=== PATIENT | male | born 1950 | race Caucasian/White ===

== ENCOUNTER 2018-06-29 11:12 | Inpatient (IN) ==
--- NOTE | 2018-06-29 11:20 | Emergency Department Note ---
ED Disposition Clinical Impression: Tobacco use disorder, COPD (chronic obstructive pulmonary disease), Community acquired bacterial pneumonia, Thickening of pleura Disposition: Still a Patient Condition on Discharge: Fair - Critical Care Critical Care Time: No Attestation: On , the high probability of a clinically significant, sudden or life threatening deterioration of the following system(s) required my full and direct attention, intervention and personal management. The time I documented below is in addition to time spent performing reported procedures but includes the following listed in this critical care notation. Medical Decision Making - Kel Inquiry Pt receiving controlled substance: No Kel was queried for this patient: No Vital Signs: 06/29/18 11:13 06/29/18 11:40 06/29/18 12:21 Temperature 103 F H Temperature Source Oral Pulse Rate 109 H Pulse Rate [Right Brachial] 115 H 105 H Respiratory Rate 24 Blood Pressure [Right Arm] 121/45 119/58 Blood Pressure Mean [Right Arm] 70 78 Blood Pressure Source [Right Arm] Automatic Cuff Automatic Cuff Blood Pressure Position [Right Arm] Sitting Sitting 02 Sat by Pulse Oximetry 91 L 94 L 96 Oxygen Delivery Method Nasal Cannula Nasal Cannula Nasal Cannula Oxygen Flow Rate (LPM) 2 2 2 06/29/18 13:00 Temperature Temperature Source Pulse Rate Pulse Rate [Right Brachial] 109 H Respiratory Rate Blood Pressure [Right Arm] 121/62 Blood Pressure Mean [Right Arm] 81 Blood Pressure Source [Right Arm] Blood Pressure Position [Right Arm] 02 Sat by Pulse Oximetry 95 Oxygen Delivery Method Oxygen Flow Rate (LPM) - Lab Data Lab Results 06/29/18 11:24: WBC 18.1 H, RBC 4.80, Hgb 14.2, Hct 44.0, MCV 91.8, MCH 29.6, MCHC 32.3, RDW 15.2, Plt Count 294, MPV 10.3, Neut % (Auto) 84.6 H, Lymph % (Auto) 6.5 L, [place] % (Auto) 8.1, Eos % (Auto) 0.4, Baso % (Auto) 0.4, Neut # (Auto) 15.3 H, Lymph # (Auto) 1.2, [place] # (Auto) 1.5 H, Eos # (Auto) 0.1, Baso # (Auto) 0.1, Total Counted 100, Neutrophils % (Manual) 82 H, Lymphocytes % (Manual) 13, Monocytes % (Manual) 5, Platelet Estimate Normal, RBC Morphology Normal 06/29/18 11:24: Sodium 142, Potassium 4.0, Chloride 103, Carbon Dioxide 28, Anion Gap 15.0, BUN 17, Creatinine 0.92, Estimated Creat Clear 102, Estimated GFR 82, Est GFR ( Amer) 99, Glucose 137 H, Calcium 9.6, Total Bilirubin 0.6, AST 14 L, ALT 30, Alkaline Phosphatase 84, Total Creatine Kinase 80, CK-MB (CK-2) 0.6, CK-MB (CK-2) Rel Index 0.8, Troponin I < 0.02, Total Protein 8.3 H, Albumin 3.4, Globulin 4.9 H, Albumin/Globulin Ratio 0.7 L 06/29/18 11:24: Lactate 1.3 Result diagrams: 06/29/18 11:24 06/29/18 11:24 Orders (Tests/Meds): ED MEDICATIONS Generic Name Dose Route Start Last Admin Trade Name Freq PRN Reason Stop Dose Admin Albuterol/Ipratropium 3 ml 06/29/18 11:30 06/29/18 11:39 Duoneb 3ml Critical [facility] hospital 07/29/18 11:29 3 ml Q1H ABDULLAHI Administration Ceftriaxone Sodium 1 gm/ 50 mls @ 100 mls/hr 06/29/18 11:30 06/29/18 11:37 Sodium Chloride IV 07/13/18 11:29 100 mls/hr Q24H ABDULLAHI Administration Protocol Sodium Chloride 3,060 mls @ 1,530 mls/hr 06/29/18 11:37 06/29/18 11:39 Sod Chlor 0.9% 1000ml Bag 30 ml/kg infuse over 2 hr (3060 ml) 06/29/18 13:36 1,530 mls/hr IV Administration .Q2H ONE Sodium Chloride 3 ml 06/29/18 11:22 06/29/18 11:38 Sodium Chloride 3% 15ml Critical access hospital 07/29/18 11:21 3 ml ONCE PRN Administration INDUCE [employer]UM [employer]LE[employer] Discontinued Medications Generic Name Dose Route Start Last Admin Trade Name Freq PRN Reason Stop Dose Admin Acetaminophen 650 mg 06/29/18 11:50 06/29/18 11:53 Acetaminophen 325mg Tab PO 06/29/18 11:51 650 mg ONCE ONE Administration Sodium Chloride 1,000 mls @ 500 mls/hr 06/29/18 11:30 06/29/18 11:38 Sod Chlor 0.9% 1000ml Bag IV 06/29/18 13:29 Not Given .Q2H ABDULLAHI ORDERS Category Date Time Status XR chest 2V Stat Exams 06/29/18 11:22 Taken Urinalysis and Microscopic Stat Lab 06/29/18 11:22 Ordered Blood Culture Stat Micro 06/29/18 11:28 Ordered Sputum Culture & Gram Stain Stat Micro 06/29/18 11:46 Ordered ECG Request by /Nse Stat Y 06/29/18 11:22 Ordered - ECG Data Tracing #1 Sinus tachycardia 10 4/min no acute finding. ECG initial impression date: 06/29/18 ECG initial impression time: 12:05 Medical Decision Narrative: Patient received neb treatments obtain sputum and blood cultures start on antibiotics. Did have abnormal chest x-ray with right middle lobe infiltrates and pleural disease. I discussed the chest x-ray with Dr. Hernandez. [address] alexandra was personal lines underwriter for unassigned patient admitted for community- acquired pneumonia and chronic lung. Resp/SOB HPI - General Stated Complaint: SOA Time Seen by Provider: 06/29/18 11:15 - History of Present Illness 68 years old smoker white male with history of heart condition that he takes no longer medication for it. Also he had a his of left Kidney surgery for a benign tumor. He has been unable to smoke for the last few days due to shortness of breath having productive sputum that turned green, denies fever or chills. He has a remote history of pneumonia. The contacted ambulance upon arrival he was short of breath with a saturation of 92 was given a DuoNeb with a saturation of 100% The patient denies fever chills chest pain palpitations hemoptysis hematemesis coffee-ground emesis melanotic stool or bleeding per rectum he denies history of dysuria hematuria or frequency. MD Complaint: shortness of breath, cough Onset (ago): day(s) (4 days.) Context: occurred during exertion, smoke/fume exposure Severity: moderate Consistency/Duration: constant Relieving factors: oxygen, bronchodilators Exacerbating factors: exertion Known history of: COPD Associated symptoms: denies other symptoms Treatment prior to arrival: oxygen, bronchodilator - Related Data Home oxygen amount: 2 liters Home Medications Medication Instructions Recorded Confirmed Aspirin [Aspir 81] 81 mg PO DAILY 06/29/18 06/29/18 Buspirone HCl [Buspar 10mg tablet] 0 mg PO BID PRN 06/29/18 06/29/18 Clopidogrel Bisulfate [Plavix 75mg 75 mg PO DAILY 06/29/18 06/29/18 Tab] Gabapentin [Neurontin 800mg Tab] 800 mg PO TID PRN 06/29/18 06/29/18 Lisinopril/Hydrochlorothiazide 1 tab PO DAILY 06/29/18 06/29/18 [Lisinopril-Hctz 20-12.5 mg Tab] Metoprolol Succinate 50 mg PO DAILY 06/29/18 06/29/18 Oxycodone HCl [Oxycontin 15mg tab] 15 mg PO Q6HP PRN 06/29/18 06/29/18 Pantoprazole Sodium [Protonix 40mg 40 mg PO DAILY 06/29/18 06/29/18 tablet] Allergies Allergy/AdvReac Type Severity Reaction Status Date / Time No Known Allergies Allergy Verified 06/29/18 11:29 [facility] History I have reviewed the patient's past medical history: Yes ROS Obtained: Yes All systems reviewed & no additional complaints Physical Exam - General General appearance: alert, in no apparent distress, anxious - Head Head exam: atraumatic, normocephalic, normal inspection - Eye Eye exam: Present: normal appearance, PERRL, EOMI. Absent: scleral icterus, conjunctival redness, jaundice, nystagmus - ENT ENT exam: Present: normal exam, normal oropharynx, mucous membranes dry, TM's normal bilaterally, normal external ear exam - Neck Neck exam: Present: normal inspection, full ROM, trachea midline. Absent: tenderness, meningismus, lymphadenopathy - Chest Chest inspection: Present: normal inspection, symmetric chest wall rise. Absent: tenderness - Respiratory Respiratory exam: Present: normal lung sounds bilaterally, respiratory distress, wheezes, accessory muscle use (He is in moderate respiratory distress with coarse rhonchi over the right lung. ) - Cardiovascular Cardiovascular exam: Present: regular rate, normal rhythm, normal heart sounds. Absent: JVD - Abdominal Exam Abdominal exam: Present: soft, normal bowel sounds. Absent: distention, tenderness, guarding, rebound, rigidity - Extremities Exam Extremities exam: Present: normal inspection, full ROM, normal capillary refill. Absent: tenderness, pedal edema, calf tenderness - Back Exam Back exam: Present: normal inspection. Absent: tenderness - Neurological Exam Neurological exam: Present: alert, oriented X3, CN II-XII intact, motor sensory deficit, reflexes normal - Psychiatric Psychiatric exam: Present: normal affect, normal mood - Skin Skin exam: Present: warm, dry, intact, normal color - Lymphatic Lymphatic Findings: no adenopathy
[2018-06-29 11:45] LABS: Basophils # 0.1 K/mm3 (0-0.2); Basophils % 0.4 % (0.1-2.0); Eosinophils # 0.1 K/mm3 (0.0-0.4); Eosinophils % 0.4 % (0.1-12.0); Hemoglobin 14.2 g/dL (14.1-18.0); Lymphocytes # 1.2 K/mm3 (0.7-4.5); Lymphocytes % 6.5 K/mm3 (10-50); Mean Corpuscular HGB Conc 32.3 g/dL (31.8-35.4); Mean Corpuscular Hemoglobin 29.6 pg (27.0-31.2); Mean Corpuscular Volume 91.8 fl (80-94); Mean Platelet Volume 10.3 fl (7.4-10.4); Monocytes # 1.5 K/mm3 (0.1-1.0); Monocytes % 8.1 % (1.7-9.3); Neutrophils # 15.3 K/mm3 (1.8-7.8); Neutrophils % 84.6 % (37.0-80.0); Platelet Count 294 K/mm3 (142-424); Red Cell Distribution Width 15.2 % (11.5-17.5); White Blood Count 18.1 K/mm3 (4.8-10.8)
[2018-06-29 12:05] LABS: Alanine Aminotransferase 30 U/L (12-78); Albumin Level 3.4 gm/dL (3.4-5.0); Albumin/Globulin Ratio 0.7 (1.1-1.8); Alkaline Phosphatase 84 U/L (46-116); Aspartate Amino Transferase 14 U/L (15-37); Bilirubin,Total 0.6 mg/dL (0.2-1.0); Blood Urea Nitrogen 17 mg/dL (7-18); Calcium 9.6 mg/dL (8.5-10.1); Carbon Dioxide 28 mmol/L (21.0-32.0); Chloride 103 mmol/L (98-107); Creatine Kinase 80 U/L (39-308); Globulin 4.9 gm/dl (1.3-3.2); Glucose 137 mg/dL (74-106); Sodium 142 mmol/L (136-145); Total Protein,Serum 8.3 gm/dL (6.4-8.2)
[2018-06-29 12:23] LABS: Lymphocytes % 13 % (10-50); Monocytes % 5 % (2-9); Neutrophils % 82 % (42-76); RBC Morphology Normal; Total Cells Counted 100
[2018-06-29 13:24] LABS: Microscopic, Urine URINE MICROSCOPIC (MICROSCOPIC)
[2018-06-29 13:26] LABS: Appearance,Urine CLEAR (Clear); Blood, Urine Negative (Negative); Color,Urine YELLOW (Yellow); Glucose,Urine (UA) Negative (Negative); Ketones,Urine 1+ (Negative); Leukocyte Esterase,Urine Negative (Negative); Protein,Urine 2+ (Negative)
[2018-06-29 13:51] LABS: Bilirubin,Urine Negative (Negative)
[2018-06-29 13:52] LABS: Bacteria,Urine Trace /lpf
[2018-06-29 13:53] LABS: Mucus,Urine 1+ /lpf
--- NOTE | 2018-06-29 14:21 | History & Physical Report ---
*Admission Date: 06/29/18 <EmeritaSaloni 06/29/18 14:28> *Chief complaint: SOA, cough <Saloni Felder 06/29/18 14:28> *History of present illness: Mr. Stanley is a 68-year-old white male smoker with a history of COPD, hypertension, and a TIA. He has also had benign cysts removed from his bilateral kidneys. He states over the past 3-4 days he has developed a cough and progressive shortness of breath. Yesterday he began coughing up yellow sputum. He became so short of breath today that he called 911 and was transported to the emergency room where he was found to have pneumonia. He had pneumonia one other time in his life in 1996. He denies any fever or chills. He does not have oxygen or nebulizer at home. According to the ER note, his oxygen saturation was 92 upon arrival of the ambulance and after given a DuoNeb, it increased to 100%. He will be admitted for further evaluation and treatment. <Saloni Felder 06/29/18 14:28> [facility] History Medical History: Reports:: Chronic Obstructive Pulmonary Disease (COPD), Hypertension, Transient Ischemic Attacks (TIA) Denies:: Cancer, Diabetes Mellitus Type 1, Diabetes Mellitus Type 2, MRSA <Saloni Felder 06/29/18 14:28> Other Surgeries: Yes: Hernia Repair <Saloni Felder 06/29/18 14:28> Amputation: No <Saloni Felder 06/29/18 14:28> Comment: Cysts removed from bilateral kidneys <Saloni Felder 06/29/18 14:28> - *Social History Smoking Status: Current every day smoker <Saloni Felder 06/29/18 14:28> Tobacco Type: cigarettes <Saloni Felder 06/29/18 14:28> # Packs/Day (cigarettes): 2 <Saloni Felder 06/29/18 14:28> Alcohol Intake: former <Saloni Felder 06/29/18 14:28> Alcohol Intake Frequency:: holidays/special occasions only <Saloni Felder 06/29/18 14:28> - Psychiatric History Expresses thoughts of harming self/others: None <Saloni Felder 06/29/18 14:28> Suicide Plan Description: No Plan <Saloni Felder 06/29/18 14:28> *Family Hx:: Cancer, Diabetes <Saloni Felder 06/29/18 14:28> Review of Systems - Constitutional Reports fatigue, Reports weakness, Denies chills, Denies fever(s) <JemalbarbSaloni - 06/29/18 14:28> - Eyes Denies blurry vision, Denies double vision <JemalbarbSaloni 06/29/18 14:28> - ENT Reports nasal congestion, Denies sore throat <JemalbarbSaloni - 06/29/18 14:28> - *Cardiovascular Denies chest pain, Denies rapid, pounding, or irregular heartbeat <JemalbarbSaloni 06/29/18 14:28> - *Respiratory Reports chest congestion, Reports cough, Reports shortness of breath, Reports excessive phlegm production <JemalbarbSaloni - 06/29/18 14:28> - *Gastrointestinal Reports nausea, Denies abdominal pain, Denies loose stools, Denies vomiting <JemalbarbSaloni - 06/29/18 14:28> - *Genitourinary Denies difficulty urinating, Denies painful urination <JemalbarbSaloni - 06/29/18 14:28> - *Musculoskeletal Reports joint pain (legs), Reports back pain <[facility] 06/[facility]/18 14:28> - *Neurologic Reports headache(s), Reports dizziness, Reports weakness <JemalbarbSaloni 06/29/18 14:28> Meds Home Medications Medication Instructions Recorded Confirmed Type Aspirin [Aspir 81] 81 mg PO DAILY 06/29/18 06/29/18 History Buspirone HCl [Buspar 10mg tablet] 10 mg PO BID 06/29/18 06/30/18 History Clopidogrel Bisulfate [Plavix 75mg 75 mg PO DAILY 06/29/18 06/29/18 History Tab] Gabapentin [Neurontin 800mg Tab] 800 mg PO TID PRN 06/29/18 06/29/18 History Lisinopril/Hydrochlorothiazide 1 tab PO DAILY 06/29/18 06/29/18 History [Lisinopril-Hctz 20-12.5 mg Tab] Metoprolol Succinate 50 mg PO DAILY 06/29/18 06/29/18 History Oxycodone HCl [Oxycontin 15mg tab] 15 mg PO Q6HP PRN 06/29/18 06/29/18 History Pantoprazole Sodium [Protonix 40mg 40 mg PO DAILY 06/29/18 06/29/18 History tablet] <Bharti Spencer 06/30/18 11:40> Allergies Allergy/AdvReac Type Severity Reaction Status Date / Time No Known Allergies Allergy Verified 06/29/18 11:29 <Bharti Spencer 06/30/18 11:40> Exam Vital signs and Labs for Last 24 Hours: Temp Pulse Resp BP Pulse Ox 98.1 F 93 H 19 157/87 88 L 06/30/18 04:30 06/30/18 04:30 06/30/18 08:00 06/30/18 08:23 06/30/18 04:30 Laboratory Results - last 24 hr 06/29/18 11:24: WBC 18.1 H, RBC 4.80, Hgb 14.2, Hct 44.0, MCV 91.8, MCH 29.6, MCHC 32.3, RDW 15.2, Plt Count 294, MPV 10.3, Neut % (Auto) 84.6 H, Lymph % (Auto) 6.5 L, [place] % (Auto) 8.1, Eos % (Auto) 0.4, Baso % (Auto) 0.4, Neut # (Auto) 15.3 H, Lymph # (Auto) 1.2, [place] # (Auto) 1.5 H, Eos # (Auto) 0.1, Baso # (Auto) 0.1, Total Counted 100, Neutrophils % (Manual) 82 H, Lymphocytes % (Manual) 13, Monocytes % (Manual) 5, Platelet Estimate Normal, RBC Morphology Normal 06/29/18 11:24: Sodium 142, Potassium 4.0, Chloride 103, Carbon Dioxide 28, Anion Gap 15.0, BUN 17, Creatinine 0.92, Estimated Creat Clear 102, Estimated GFR 82, Est GFR ( Amer) 99, Glucose 137 H, Calcium 9.6, Total Bilirubin 0.6, AST 14 L, ALT 30, Alkaline Phosphatase 84, Total Creatine Kinase 80, CK-MB (CK-2) 0.6, CK-MB (CK-2) Rel Index 0.8, Troponin I < 0.02, Total Protein 8.3 H, Albumin 3.4, Globulin 4.9 H, Albumin/Globulin Ratio 0.7 L 06/29/18 11:24: Lactate 1.3 06/29/18 13:10: Urine Color Yellow, Urine Appearance Clear, Urine pH 7.0, Ur Specific [place] 1.020, Urine Protein 2+, Urine Glucose (UA) Negative, Urine Ketones 1+, Urine Blood Negative, Urine Nitrate Negative, Urine Bilirubin Negative, Urine Urobilinogen 2.0, Ur Leukocyte Esterase Negative, Urine RBC None, Urine WBC 3-5, Ur Squamous Epith Cells 3-5, Urine Bacteria Trace, Urine Mucus 1+ 06/29/18 23:24: Stl Aeromonas (PCR) Not detected, Stl C. cayetanensis PCR Not detected, Stool Rotavirus (PCR) Not detected, Stl Adenov F 40/41 PCR Not detected, Stool Astrovirus (PCR) Not detected, Stool Campylobacter PCR Not detected, Stl C.difficile Tox PCR Not detected, Stool Cryptosporidium PCR Not detected, Stl E.coli Shiga Tox PCR Not detected, Stool E coli O157 PCR Not detected, Stl Enterotoxigenic E PCR Not detected, Stool EPEC (PCR) Detected A, Stool EAEC (PCR) Not detected, Stl E. histolytica PCR Not detected, Stool Giardia Lamblia PCR Not detected, Stool Salmonella PCR Not detected, Stool Sapovirus (PCR) Not detected, Stl P. shigelloides PCR Not detected, Stl Shigella/EIEC PCR Not detected, St Y.enterocolitica PCR Not detected, Stool Vibrio (PCR) Not detected, Stl Vibrio cholerae PCR Not detected, Stl Norovirus GI/GII PCR Not detected 06/30/18 06:50: WBC 17.3 H, RBC 4.66, Hgb 13.7 L, Hct 42.1, MCV 90.5, MCH 29.3, MCHC 32.4, RDW 15.1, Plt Count 285, MPV 9.8, Neut % (Auto) 86.8 H, Lymph % (Auto) 7.5 L, [place] % (Auto) 5.5, Eos % (Auto) 0.1, Baso % (Auto) 0.1, Neut # (Auto) 15.1 H, Lymph # (Auto) 1.3, [place] # (Auto) 1.0, Eos # (Auto) 0.0, Baso # (Auto) 0.0, Total Counted 100, Neutrophils % (Manual) 88 H, Lymphocytes % (Manual) 9 L, Monocytes % (Manual) 3, Platelet Estimate Normal, RBC Morphology Normal 06/30/18 06:50: Sodium 145, Potassium 4.1, Chloride 108 H, Carbon Dioxide 29, Anion Gap 12.1, BUN 20 H, Creatinine 0.76, Estimated Creat Clear 95, Estimated GFR 102, Est GFR ( Amer) 123 D, Glucose 137 H, Calcium 9.4 <Sound,Bharti - 06/30/18 11:40> Temp Pulse Resp BP Pulse Ox 103 F H 80 24 171/98 88 L 06/29/18 11:13 06/29/18 13:39 06/29/18 11:13 06/29/18 13:39 06/29/18 13:39 Laboratory Results - last 24 hr 06/29/18 11:24: WBC 18.1 H, RBC 4.80, Hgb 14.2, Hct 44.0, MCV 91.8, MCH 29.6, MCHC 32.3, RDW 15.2, Plt Count 294, MPV 10.3, Neut % (Auto) 84.6 H, Lymph % (Auto) 6.5 L, [place] % (Auto) 8.1, Eos % (Auto) 0.4, Baso % (Auto) 0.4, Neut # (Auto) 15.3 H, Lymph # (Auto) 1.2, [place] # (Auto) 1.5 H, Eos # (Auto) 0.1, Baso # (Auto) 0.1, Total Counted 100, Neutrophils % (Manual) 82 H, Lymphocytes % (Manual) 13, Monocytes % (Manual) 5, Platelet Estimate Normal, RBC Morphology Normal 06/29/18 11:24: Sodium 142, Potassium 4.0, Chloride 103, Carbon Dioxide 28, Anion Gap 15.0, BUN 17, Creatinine 0.92, Estimated Creat Clear 102, Estimated GFR 82, Est GFR ( Amer) 99, Glucose 137 H, Calcium 9.6, Total Bilirubin 0.6, AST 14 L, ALT 30, Alkaline Phosphatase 84, Total Creatine Kinase 80, CK-MB (CK-2) 0.6, CK-MB (CK-2) Rel Index 0.8, Troponin I < 0.02, Total Protein 8.3 H, Albumin 3.4, Globulin 4.9 H, Albumin/Globulin Ratio 0.7 L 06/29/18 11:24: Lactate 1.3 06/29/18 13:10: Urine Color Yellow, Urine Appearance Clear, Urine pH 7.0, Ur Specific [place] 1.020, Urine Protein 2+, Urine Glucose (UA) Negative, Urine Ketones 1+, Urine Blood Negative, Urine Nitrate Negative, Urine Bilirubin Negative, Urine Urobilinogen 2.0, Ur Leukocyte Esterase Negative, Urine RBC None, Urine WBC 3-5, Ur Squamous Epith Cells 3-5, Urine Bacteria Trace, Urine Mucus 1+ <Saloni Felder 06/29/18 14:28> I & O for Last 24 hours: Intake & Output 06/27/18 06/28/18 06/29/18 06/30/18 11:59 11:59 11:59 11:59 Intake Total 864 / 864 Output Total 920 / 920 Balance -56 / -56 Weight 225 lb 208 lb 9.6 oz [facility] 06/30/18 11:40> Intake & Output 06/27/18 06/28/18 06/29/18 06/30/18 11:59 11:59 11:59 11:59 Weight 225 lb <Saloni Felder 06/29/18 14:28> Microbiology Reports for the Last 24 Hours: Microbiology 06/29/18 11:46 Sputum - Expectorated Sputum Gram Stain - Final 06/29/18 11:46 Sputum - Expectorated Sputum Sputum Culture - Preliminary <[facility] 06/30/18 11:40> Microbiology 06/29/18 11:46 Sputum - Expectorated Sputum Gram Stain - Final <Saloni Felder 06/29/18 14:28> - Constitutional Comments: Does not appear to feel well, dyspneic at rest <Saloni Felder 06/29/18 14:28> - *Routine HEENT Exam Head: Present: normocephalic, atraumatic <Saloni Felder 06/29/18 14:28> Eye: Present: EOMI <Saloni Felder 06/29/18 14:28> ENT: Present: mucous membranes dry <Saloni Felder 06/29/18 14:28> - *Routine Neck Exam Present: supple, full ROM. Absent: carotid bruit <Saloni Felder 06/29/18 14:28> - *Routine Respiratory Exam Present: rales (right lung), rhonchi (bilaterally), wheezes (bilaterally) < Saloni Felder 06/29/18 14:28> - *Routine Cardiovascular Exam Present: RRR <Saloni Felder 06/29/18 14:28> - *Routine Abdominal Exam Present: soft, normoactive bowel sounds. Absent: tenderness <Saloni Felder 06/29/18 14:28> - *Routine Extremities Exam Absent: edema <Saloni Felder 06/29/18 14:28> - *Routine Skin Exam Present: intact <Saloni Felder 06/29/18 14:28> - *Routine Neurological Exam Present: alert, oriented X3 <Saloni Felder 06/29/18 14:28> H&P: Result - Impressions CXR - 1. CHF. 2. Consolidation in the right mid and lower lung consistent with pneumonia with suspected superimposed chronic changes with pleural thickening. There is p rominence of the right hilum. Consider chest CT for further evaluation. <Saloni Felder 06/29/18 14:28> Assessment and Plan (1) Community acquired bacterial pneumonia Current visit: Yes Status: Acute Category: Medical Code(s): J15.9 - Unspecified bacterial pneumonia (2) CHF (congestive heart failure) Current visit: Yes Status: Acute Category: Medical Code(s): I50.9 - Heart failure, unspecified (3) History of TIA (transient ischemic attack) Current visit: Yes Status: Acute Category: Medical Code(s): Z86.73 - Personal history of transient ischemic attack (TIA), and cerebral infarction without residual deficits (4) COPD (chronic obstructive pulmonary disease) Current visit: Yes Status: Chronic Category: Medical Code(s): J44.9 - Chronic obstructive pulmonary disease, unspecified (5) Thickening of pleura Current visit: Yes Status: Acute Category: Medical Code(s): J92.9 - Pleural plaque without asbestos (6) Tobacco use disorder Current visit: Yes Status: Chronic Category: Medical Code(s): F17.200 - Nicotine dependence, unspecified, uncomplicated (7) Hypertension Current visit: Yes Status: Chronic Category: Medical Code(s): I10 - Essential (primary) hypertension <Saloni Felder - 06/29/18 14:16> (1) Community acquired bacterial pneumonia Current visit: Yes Status: Acute Category: Medical Code(s): J15.9 - Unspecified bacterial pneumonia (2) History of TIA (transient ischemic attack) Current visit: Yes Status: Acute Category: Medical Code(s): Z86.73 - Personal history of transient ischemic attack (TIA), and cerebral infarction without residual deficits (3) COPD (chronic obstructive pulmonary disease) Current visit: Yes Status: Chronic Category: Medical Code(s): J44.9 - Chronic obstructive pulmonary disease, unspecified (4) Thickening of pleura Current visit: Yes Status: Acute Category: Medical Code(s): J92.9 - Pleural plaque without asbestos (5) (HFpEF) heart failure with preserved ejection fraction Current visit: Yes Status: Acute Category: Medical Code(s): I50.30 - Unspecified diastolic (congestive) heart failure (6) Tobacco use disorder Current visit: Yes Status: Chronic Category: Medical Code(s): F17.200 - Nicotine dependence, unspecified, uncomplicated (7) Hypertension Current visit: Yes Status: Chronic Category: Medical Code(s): I10 - Essential (primary) hypertension (8) E. coli gastroenteritis Current visit: Yes Status: Acute Category: Medical Code(s): A04.4 - Other intestinal Escherichia coli infections <Bharti Spencer - 06/30/18 11:40> - Assessment and plan all Dx Assessment and Plan for all problems:: agree with above and start hydralazine for his uncontrolled BP. <Bharti Spencer - 06/30/18 11:40> The ER is still putting in orders. Will get a CT of the chest as well as an echo d/t findings on CXR. Patient will be started on abx and nebs. <Jean Feldera - 06/29/18 14:28>
[2018-06-30 07:08] LABS: Basophils % 0.1 % (0.1-2.0); Eosinophils % 0.1 % (0.1-12.0); Hematocrit 42.1 % (42.0-52.0); Hemoglobin 13.7 g/dL (14.1-18.0); Lymphocytes # 1.3 K/mm3 (0.7-4.5); Lymphocytes % 7.5 K/mm3 (10-50); Mean Corpuscular HGB Conc 32.4 g/dL (31.8-35.4); Mean Corpuscular Hemoglobin 29.3 pg (27.0-31.2); Mean Corpuscular Volume 90.5 fl (80-94); Mean Platelet Volume 9.8 fl (7.4-10.4); Monocytes % 5.5 % (1.7-9.3); Neutrophils # 15.1 K/mm3 (1.8-7.8); Neutrophils % 86.8 % (37.0-80.0); Platelet Count 285 K/mm3 (142-424); Red Blood Count 4.66 M/mm3 (4.60-6.20); Red Cell Distribution Width 15.1 % (11.5-17.5); White Blood Count 17.3 K/mm3 (4.8-10.8)
[2018-06-30 07:18] LABS: Anion Gap 12.1 mEq/L (5-15); Calcium 9.4 mg/dL (8.5-10.1); Potassium 4.1 mmoL/L (3.5-5.1)
--- NOTE | 2018-06-30 08:25 | Progress Note ---
<Saloni Felder - Last Filed: 06/30/18 08:21> Internal Medicine - PN: Subj *Date: 06/30/18 *Time: 08:22 Interval history: Patient states his breathing may be slightly better today. He is still coughing up sputum. He is having a lot of back pain from laying in the bed. He did not rest well last night. He was able to eat a small amount this morning. Exam Vital signs and Labs for Last 24 Hours: Temp Pulse Resp BP Pulse Ox 98.1 F 93 H 19 176/118 88 L 06/30/18 04:30 06/30/18 04:30 06/30/18 07:44 06/30/18 07:44 06/30/18 04:30 Laboratory Results - last 24 hr 06/29/18 11:24: WBC 18.1 H, RBC 4.80, Hgb 14.2, Hct 44.0, MCV 91.8, MCH 29.6, MCHC 32.3, RDW 15.2, Plt Count 294, MPV 10.3, Neut % (Auto) 84.6 H, Lymph % (Auto) 6.5 L, [place] % (Auto) 8.1, Eos % (Auto) 0.4, Baso % (Auto) 0.4, Neut # (Auto) 15.3 H, Lymph # (Auto) 1.2, [place] # (Auto) 1.5 H, Eos # (Auto) 0.1, Baso # (Auto) 0.1, Total Counted 100, Neutrophils % (Manual) 82 H, Lymphocytes % (Manual) 13, Monocytes % (Manual) 5, Platelet Estimate Normal, RBC Morphology Normal 06/29/18 11:24: Sodium 142, Potassium 4.0, Chloride 103, Carbon Dioxide 28, Anion Gap 15.0, BUN 17, Creatinine 0.92, Estimated Creat Clear 102, Estimated GFR 82, Est GFR ( Amer) 99, Glucose 137 H, Calcium 9.6, Total Bilirubin 0.6, AST 14 L, ALT 30, Alkaline Phosphatase 84, Total Creatine Kinase 80, CK-MB (CK-2) 0.6, CK-MB (CK-2) Rel Index 0.8, Troponin I < 0.02, Total Protein 8.3 H, Albumin 3.4, Globulin 4.9 H, Albumin/Globulin Ratio 0.7 L 06/29/18 11:24: Lactate 1.3 06/29/18 13:10: Urine Color Yellow, Urine Appearance Clear, Urine pH 7.0, Ur Specific [place] 1.020, Urine Protein 2+, Urine Glucose (UA) Negative, Urine Ketones 1+, Urine Blood Negative, Urine Nitrate Negative, Urine Bilirubin Negative, Urine Urobilinogen 2.0, Ur Leukocyte Esterase Negative, Urine RBC None, Urine WBC 3-5, Ur Squamous Epith Cells 3-5, Urine Bacteria Trace, Urine Mucus 1+ 06/29/18 23:24: Stl Aeromonas (PCR) Not detected, Stl C. cayetanensis PCR Not detected, Stool Rotavirus (PCR) Not detected, Stl Adenov F 40/41 PCR Not detected, Stool Astrovirus (PCR) Not detected, Stool Campylobacter PCR Not detected, Stl C.difficile Tox PCR Not detected, Stool Cryptosporidium PCR Not detected, Stl E.coli Shiga Tox PCR Not detected, Stool E coli O157 PCR Not detected, Stl Enterotoxigenic E PCR Not detected, Stool EPEC (PCR) Detected A, Stool EAEC (PCR) Not detected, Stl E. histolytica PCR Not detected, Stool Giardia Lamblia PCR Not detected, Stool Salmonella PCR Not detected, Stool Sapovirus (PCR) Not detected, Stl P. shigelloides PCR Not detected, Stl Shigella/EIEC PCR Not detected, St Y.enterocolitica PCR Not detected, Stool Vibrio (PCR) Not detected, Stl Vibrio cholerae PCR Not detected, Stl Norovirus GI/GII PCR Not detected 06/30/18 06:50: WBC 17.3 H, RBC 4.66, Hgb 13.7 L, Hct 42.1, MCV 90.5, MCH 29.3, MCHC 32.4, RDW 15.1, Plt Count 285, MPV 9.8, Neut % (Auto) 86.8 H, Lymph % (Auto) 7.5 L, [place] % (Auto) 5.5, Eos % (Auto) 0.1, Baso % (Auto) 0.1, Neut # (Auto) 15.1 H, Lymph # (Auto) 1.3, [place] # (Auto) 1.0, Eos # (Auto) 0.0, Baso # (Auto) 0.0 06/30/18 06:50: Sodium 145, Potassium 4.1, Chloride 108 H, Carbon Dioxide 29, Anion Gap 12.1, BUN 20 H, Creatinine 0.76, Estimated Creat Clear 95, Estimated GFR 102, Est GFR ( Amer) 123 D, Glucose 137 H, Calcium 9.4 I & O for Last 24 hours: Intake & Output 06/27/18 06/28/18 06/29/18 06/30/18 11:59 11:59 11:59 11:59 Intake Total 864 / 864 Output Total 920 / 920 Balance -56 / -56 Weight 225 lb 208 lb 9.6 oz Microbiology Reports for the Last 24 Hours: Microbiology 06/29/18 11:46 Sputum - Expectorated Sputum Gram Stain - Final - Constitutional no acute distress (coughing) - *Routine Respiratory Exam Present: rales (right lung), wheezes (faint bilaterally) - *Routine Cardiovascular Exam Present: RRR - *Routine Abdominal Exam Present: soft, normoactive bowel sounds. Absent: tenderness - *Routine Extremities Exam Absent: edema Assessment and Plan (1) Community acquired bacterial pneumonia Current visit: Yes Status: Acute Category: Medical Code(s): J15.9 - Unspecified bacterial pneumonia (2) CHF (congestive heart failure) Current visit: Yes Status: Acute Category: Medical Code(s): I50.9 - Heart failure, unspecified (3) History of TIA (transient ischemic attack) Current visit: Yes Status: Acute Category: Medical Code(s): Z86.73 - Personal history of transient ischemic attack (TIA), and cerebral infarction without residual deficits (4) COPD (chronic obstructive pulmonary disease) Current visit: Yes Status: Chronic Category: Medical Code(s): J44.9 - Chronic obstructive pulmonary disease, unspecified (5) Thickening of pleura Current visit: Yes Status: Acute Category: Medical Code(s): J92.9 - Pleural plaque without asbestos (6) Tobacco use disorder Current visit: Yes Status: Chronic Category: Medical Code(s): F17.200 - Nicotine dependence, unspecified, uncomplicated (7) Hypertension Current visit: Yes Status: Chronic Category: Medical Code(s): I10 - Essential (primary) hypertension - Assessment and plan all Dx Assessment and Plan for all problems:: Apparently the patient's chest CT was canceled for an unknown reason. We will reorder this today. There is no report on the echocardiogram. Stool is positive for enteropathogenic E. coli. Sputum is still pending. Will discuss a change in abx with Dr. Spencer to cover the E. Coli. <JohannaBharti - Last Filed: 06/30/18 10:34> Exam Vital signs and Labs for Last 24 Hours: Temp Pulse Resp BP Pulse Ox 98.1 F 93 H 19 157/87 88 L 06/30/18 04:30 06/30/18 04:30 06/30/18 08:00 06/30/18 08:23 06/30/18 04:30 Laboratory Results - last 24 hr 06/29/18 11:24: WBC 18.1 H, RBC 4.80, Hgb 14.2, Hct 44.0, MCV 91.8, MCH 29.6, MCHC 32.3, RDW 15.2, Plt Count 294, MPV 10.3, Neut % (Auto) 84.6 H, Lymph % (Auto) 6.5 L, Cherry % (Auto) 8.1, Eos % (Auto) 0.4, Baso % (Auto) 0.4, Neut # (Auto) 15.3 H, Lymph # (Auto) 1.2, [place] # (Auto) 1.5 H, Eos # (Auto) 0.1, Baso # (Auto) 0.1, Total Counted 100, Neutrophils % (Manual) 82 H, Lymphocytes % (Manual) 13, Monocytes % (Manual) 5, Platelet Estimate Normal, RBC Morphology Normal 06/29/18 11:24: Sodium 142, Potassium 4.0, Chloride 103, Carbon Dioxide 28, Anion Gap 15.0, BUN 17, Creatinine 0.92, Estimated Creat Clear 102, Estimated GFR 82, Est GFR ( Amer) 99, Glucose 137 H, Calcium 9.6, Total Bilirubin 0.6, AST 14 L, ALT 30, Alkaline Phosphatase 84, Total Creatine Kinase 80, CK-MB (CK-2) 0.6, CK-MB (CK-2) Rel Index 0.8, Troponin I < 0.02, Total Protein 8.3 H, Albumin 3.4, Globulin 4.9 H, Albumin/Globulin Ratio 0.7 L 06/29/18 11:24: Lactate 1.3 06/29/18 13:10: Urine Color Yellow, Urine Appearance Clear, Urine pH 7.0, Ur Specific [place] 1.020, Urine Protein 2+, Urine Glucose (UA) Negative, Urine Ketones 1+, Urine Blood Negative, Urine Nitrate Negative, Urine Bilirubin Negative, Urine Urobilinogen 2.0, Ur Leukocyte Esterase Negative, Urine RBC None, Urine WBC 3-5, Ur Squamous Epith Cells 3-5, Urine Bacteria Trace, Urine Mucus 1+ 06/29/18 23:24: Stl Aeromonas (PCR) Not detected, Stl C. cayetanensis PCR Not detected, Stool Rotavirus (PCR) Not detected, Stl Adenov F 40/41 PCR Not detected, Stool Astrovirus (PCR) Not detected, Stool Campylobacter PCR Not detected, Stl C.difficile Tox PCR Not detected, Stool Cryptosporidium PCR Not detected, Stl E.coli Shiga Tox PCR Not detected, Stool E coli O157 PCR Not detected, Stl Enterotoxigenic E PCR Not detected, Stool EPEC (PCR) Detected A, Stool EAEC (PCR) Not detected, Stl E. histolytica PCR Not detected, Stool Giardia Lamblia PCR Not detected, Stool Salmonella PCR Not detected, Stool Sapovirus (PCR) Not detected, Stl P. shigelloides PCR Not detected, Stl Shigella/EIEC PCR Not detected, St Y.enterocolitica PCR Not detected, Stool Vibrio (PCR) Not detected, Stl Vibrio cholerae PCR Not detected, Stl Norovirus GI/GII PCR Not detected 06/30/18 06:50: WBC 17.3 H, RBC 4.66, Hgb 13.7 L, Hct 42.1, MCV 90.5, MCH 29.3, MCHC 32.4, RDW 15.1, Plt Count 285, MPV 9.8, Neut % (Auto) 86.8 H, Lymph % (Auto) 7.5 L, [place] % (Auto) 5.5, Eos % (Auto) 0.1, Baso % (Auto) 0.1, Neut # (Auto) 15.1 H, Lymph # (Auto) 1.3, Cherry # (Auto) 1.0, Eos # (Auto) 0.0, Baso # (Auto) 0.0 06/30/18 06:50: Sodium 145, Potassium 4.1, Chloride 108 H, Carbon Dioxide 29, Anion Gap 12.1, BUN 20 H, Creatinine 0.76, Estimated Creat Clear 95, Estimated GFR 102, Est GFR ( Amer) 123 D, Glucose 137 H, Calcium 9.4 I & O for Last 24 hours: Intake & Output 06/27/18 06/28/18 06/29/18 06/30/18 11:59 11:59 11:59 11:59 Intake Total 864 / 864 Output Total 920 / 920 Balance -56 / -56 Weight 225 lb 208 lb 9.6 oz Microbiology Reports for the Last 24 Hours: Microbiology 06/29/18 11:46 Sputum - Expectorated Sputum Gram Stain - Final 06/29/18 11:46 Sputum - Expectorated Sputum Sputum Culture - Preliminary Assessment and Plan (1) Community acquired bacterial pneumonia Current visit: Yes Status: Acute Category: Medical Code(s): J15.9 - Unspecified bacterial pneumonia (2) History of TIA (transient ischemic attack) Current visit: Yes Status: Acute Category: Medical Code(s): Z86.73 - Personal history of transient ischemic attack (TIA), and cerebral infarction without residual deficits (3) COPD (chronic obstructive pulmonary disease) Current visit: Yes Status: Chronic Category: Medical Code(s): J44.9 - Chronic obstructive pulmonary disease, unspecified (4) Thickening of pleura Current visit: Yes Status: Acute Category: Medical Code(s): J92.9 - Pleural plaque without asbestos (5) (HFpEF) heart failure with preserved ejection fraction Current visit: Yes Status: Acute Category: Medical Code(s): I50.30 - Unspecified diastolic (congestive) heart failure (6) Tobacco use disorder Current visit: Yes Status: Chronic Category: Medical Code(s): F17.200 - Nicotine dependence, unspecified, uncomplicated (7) Hypertension Current visit: Yes Status: Chronic Category: Medical Code(s): I10 - Essential (primary) hypertension (8) E. coli gastroenteritis Current visit: Yes Status: Acute Category: Medical Code(s): A04.4 - Other intestinal Escherichia coli infections - Assessment and plan all Dx Assessment and Plan for all problems:: Will do lasix one dose for HFpEF exacerbation. Continue all current meds for HTN. No abx needed for E.coli gastroenteritis. Will get him qualified for oxygen if needed. Continue azithromycin and rocephin, day [address] for CAP[address] Will await CT scan results.
--- NOTE | 2018-06-30 09:45 | Pharmacy Consult Notes ---
[facility] Pharmacy VTE Monitoring - Patient Demographics Admission date: 06/30/18 Report Date: 06/30/18 Time: 09:45 Allergies/Adverse Reactions: Patient Allergies No Known Allergies Allergy (Verified 06/29/18 11:29) Height: 1.7 m Weight: 94.619 kg Patient Problems: Current Active Problems Tobacco use disorder (Chronic) COPD (chronic obstructive pulmonary disease) (Chronic) Community acquired bacterial pneumonia (Acute) Thickening of pleura (Acute) CHF (congestive heart failure) (Acute) Hypertension (Chronic) History of TIA (transient ischemic attack) (Acute) - VTE Risk Labs: VTE Related Lab Results Hgb 13.7 g/dL (14.1-18.0) L 06/30/18 06:50 Hct 42.1 % (42.0-52.0) 06/30/18 06:50 Plt Count 285 K/mm3 (142-424) 06/30/18 06:50 BUN 20 mg/dL (7-18) H 06/30/18 06:50 Creatinine 0.76 mg/dL (0.70-1.30) 06/30/18 06:50 Estimated Creat Clear 95 mL/min (0-300) 06/30/18 06:50 Was VTE Risk Assessment Performed: Yes VTE Score: 2 VTE Risk Level: Very Low Risk Clinical Trial Participant: No - Prophylaxis VTE Prophylaxis Ordered?: Yes Types of VTE Prophylaxis: TEDS Knee High
--- NOTE | 2018-06-30 10:28 | Cardiology Report ---
PROCEDURE: 2-D M-mode and color Doppler study INDICATIONS FOR THE TEST: Chest pain COPD+ Heart Murmur Tobacco Smoking+ Palpitations Fatigue Syncope Edema Hypertension+Diabetes Mellitus Rheumatic Fever SOB+DOE_Obesity Hyperlipidemia Family History HD Additional History CHF on CXR PATIENT INFORMATION HEIGHT: 68 WEIGHT: 225 GENDER: Male B/P: 124/45 2-D/M-MODE INTERPRETATION: 2-D MEASUREMENTS OBSERVED VALUES IN CMS Right Ventricular Dimension (RVDd) Interventricular Septum (Thickness)(IVsd) Left Ventricular Internal Dimensions(LVIDd) Left Ventricular Posterior Wall (Thickness)(LVPWd) Aortic Root Aortic Cusp Separation Left Atrial Dimensions (LAD) 2D 1. Limited difficult difficult study because of the patient's factor and poor acoustic windows, M-mode dimensions are not recorded 2. The left atrium is mildly enlarged, left ventricle is normal size, probably preserved left ventricular systolic function, visually estimated ejection fraction of 55% with no regional wall motion abnormality, endocardial subsequent poorly visualized. 3. The right atrium and right ventricle are normal size and contractility. 4. The aortic valve is minimally thickened and fibrosed. 5. The mitral and tricuspid valve are grossly normal. 6. No significant pericardial effusion noted. DOPPLER INTERROGATION: Doppler interrogation of the aortic, mitral and tricuspid valvular presence of mild mitral and tricuspid regurgitation, tricuspid regurgitation jet velocity is insufficient for calculation of the right ventricular systolic pressure, grade 1 diastolic dysfunction seen without tissue Doppler evidence of raised left atrial pressure. CONCLUSION: 1. Mildly enlarged left atrium, normal left ventricular size, preserved left ventricular systolic function, visually estimated ejection fraction 55% with no regional wall motion abnormality. Grade 1 diastolic dysfunction seen without tissue Doppler evidence of raised left atrial pressure. 2. Mild mitral and tricuspid regurgitation 3. Technically limited and difficult study.
[2018-06-30 11:38] LABS: Lymphocytes % 9 % (10-50); Monocytes % 3 % (2-9); Neutrophils % 88 % (42-76); RBC Morphology Normal; Total Cells Counted 100
[2018-06-30 14:17] LABS: Microscopic, Urine URINE MICROSCOPIC (MICROSCOPIC)
[2018-06-30 14:22] LABS: Appearance,Urine CLEAR (Clear); Bilirubin,Urine Negative (Negative); Blood, Urine TRACE-I (Negative); Color,Urine YELLOW (Yellow); Glucose,Urine (UA) Negative (Negative); Ketones,Urine Negative (Negative); Leukocyte Esterase,Urine Negative (Negative); Protein,Urine Negative (Negative); Urobilinogen,Urine 0.2 EU/dl (0.2)
--- NOTE | 2018-06-30 14:30 | Discharge Summary ---
General - General Admission date:: 06/29/18 Discharge date: 06/30/18 HPI HPI: Mr. Stanley is a 68-year-old white male smoker with a history of COPD, hypertension, and a TIA. He has also had benign cysts removed from his bilateral kidneys. He states over the past 3-4 days he has developed a cough and progressive shortness of breath. Yesterday he began coughing up yellow sputum. He became so short of breath today that he called 911 and was transport ed to the emergency room where he was found to have pneumonia. He had pneumonia one other time in his life in 1996. He denies any fever or chills. He does not have oxygen or nebulizer at home. According to the ER note, his oxygen saturation was 92 upon arrival of the ambulance and after given a DuoNeb, it increased to 100%. He will be admitted for further evaluation and treatment. Hospital Course Hospital Course: The patient was started on abx and nebs. A CT was ordered of the chest as was an echo d/t some CHF seen on CXR. He was started on hydralazine for uncontrolled BP. The patient's echo was limited d/t poor acoustic windows but showed an EF of 55%. He was given a dose of lasix. His chest CT showed right hemithorax fibrocalcific changes with volume loss and calcified pleural plaques with mediastinal shift toward the right. There were asymmetric increased interstitial markings of the right lung compared to the left which could be related to underlying interstitial pneumonitis but could also be related to the right-sided volume loss and restrictive changes. It was felt the patient needed to be transferred to under the care of a sand temperer. Dr. Spencer contacted and the patient will be transferred to an ICU bed as soon as one becomes available. Objective Vital signs: Temp Pulse Resp BP Pulse Ox 98.1 F 89 19 148/76 90 L 06/30/18 04:30 06/30/18 14:08 06/30/18 08:00 06/30/18 14:08 06/30/18 14:08 Narrative: - Constitutional Comments: Does not appear to feel well, dyspneic at rest - *Routine HEENT Exam Head: Present: normocephalic, atraumatic Eye: Present: EOMI ENT: Present: mucous membranes dry - *Routine Neck Exam Present: supple, full ROM. Absent: carotid bruit - *Routine Respiratory Exam Present: rales (right lung), rhonchi (bilaterally), wheezes (bilaterally) - *Routine Cardiovascular Exam Present: RRR - *Routine Abdominal Exam Present: soft, normoactive bowel sounds. Absent: tenderness - *Routine Extremities Exam Absent: edema - *Routine Skin Exam Present: intact - *Routine Neurological Exam Present: alert, oriented X3 Results Labs on day of discharge: Labs from last 24 hours 06/30/18 06/30/18 06/29/18 06:50 06:50 23:24 WBC 17.3 H RBC 4.66 Hgb 13.7 L Hct 42.1 MCV 90.5 MCH 29.3 MCHC 32.4 RDW 15.1 Plt Count 285 MPV 9.8 Neut % (Auto) 86.8 H Lymph % (Auto) 7.5 L [place] % (Auto) 5.5 Eos % (Auto) 0.1 Baso % (Auto) 0.1 Neut # (Auto) 15.1 H Lymph # (Auto) 1.3 [place] # (Auto) 1.0 Eos # (Auto) 0.0 Baso # (Auto) 0.0 Total Counted 100 Neutrophils % (Manual) 88 H Lymphocytes % (Manual) 9 L Monocytes % (Manual) 3 Platelet Estimate Normal RBC Morphology Normal Sodium 145 Potassium 4.1 Chloride 108 H Carbon Dioxide 29 Anion Gap 12.1 BUN 20 H Creatinine 0.76 Estimated Creat Clear 95 Estimated GFR 102 Est GFR ( Amer) 123 D Glucose 137 H Calcium 9.4 Stl Aeromonas (PCR) Not detected Stl C. cayetanensis PCR Not detected Stool Rotavirus (PCR) Not detected Stl Adenov F 40/41 PCR Not detected Stool Astrovirus (PCR) Not detected Stool Campylobacter PCR Not detected Stl C.difficile Tox PCR Not detected Stool Cryptosporidium PCR Not detected Stl E.coli Shiga Tox PCR Not detected Stool E coli O157 PCR Not detected Stl Enterotoxigenic E PCR Not detected Stool EPEC (PCR) Detected A Stool EAEC (PCR) Not detected Stl E. histolytica PCR Not detected Stool Giardia Lamblia PCR Not detected Stool Salmonella PCR Not detected Stool Sapovirus (PCR) Not detected Stl P. shigelloides PCR Not detected Stl Shigella/EIEC PCR Not detected St Y.enterocolitica PCR Not detected Stool Vibrio (PCR) Not detected Stl Vibrio cholerae PCR Not detected Stl Norovirus GI/GII PCR Not detected Preliminary micro results at discharge 06/29/18 11:46 Sputum Culture - Preliminary Sputum - Expectorated Sputum DS: Diagnosis - Discharge Diagnosis (1) Community acquired bacterial pneumonia Status: Acute (2) History of TIA (transient ischemic attack) Status: Acute (3) COPD (chronic obstructive pulmonary disease) Status: Chronic (4) Thickening of pleura Status: Acute (5) (HFpEF) heart failure with preserved ejection fraction Status: Acute (6) Tobacco use disorder Status: Chronic (7) Hypertension Status: Chronic (8) E. coli gastroenteritis Status: Acute (9) Pneumothorax Status: Acute Discharge Plan - Patient Discharge Instructions ACTIVITY: Continue current activity DIET: continue same diet - Follow up Plan Unknown provider or service follow up:: 06/30/18 14:24 Patient waiting on ICU bed at for tranfer. Spoke with Dr. Chavez and he has agreed to take the patient and provide further care in . This was communicated to the nurses via Jess Neil watch caser. Disposition: Xfer Other Home Medications: Home Medications Medication Instructions Recorded Confirmed Type Aspirin [Aspir 81] 81 mg PO DAILY 06/29/18 06/29/18 History Buspirone HCl [Buspar 10mg tablet] 10 mg PO BID 06/29/18 06/30/18 History Clopidogrel Bisulfate [Plavix 75mg 75 mg PO DAILY 06/29/18 06/29/18 History Tab] Gabapentin [Neurontin 800mg Tab] 800 mg PO TID PRN 06/29/18 06/29/18 History Lisinopril/Hydrochlorothiazide 1 tab PO DAILY 06/29/18 06/29/18 History [Lisinopril-Hctz 20-12.5 mg Tab] Metoprolol Succinate 50 mg PO DAILY 06/29/18 06/29/18 History Oxycodone HCl [Oxycontin 15mg tab] 15 mg PO Q6HP PRN 06/29/18 06/29/18 History Pantoprazole Sodium [Protonix 40mg 40 mg PO DAILY 06/29/18 06/29/18 History tablet] Prescriptions/Medication Reconciliation: New Hydralazine HCl [Hydralazine HCl 25mg Tablet] 100 mg PO TID tablet hydroCHLOROthiazide [HCTZ 12.5mg capsule] 12.5 mg PO DAILY capsule Sodium Chloride For Inhalation [Sodium Chloride 3% 15mL Neb] 3 ml IH ONCE PRN vial.neb PRN Reason: INDUCE SPUTUM COLLECTION Azithromycin [Zithromax 500mg ADV] 500 mg IV 1300 vial.port Ceftriaxone Sodium [Rocephin 1gm vial] 1 gm IV Q24H vial Buspirone HCl [Buspar 10mg tablet] 10 mg PO BID tablet Ipratropium/Albuterol Sulfate [Duoneb 3mL neb] 3 ml IH Q4HP PRN ampul.neb PRN Reason: Shortness Of Breath Continue Lisinopril/Hydrochlorothiazide [Lisinopril-Hctz 20-12.5 mg Tab] 1 tab PO DAILY Clopidogrel Bisulfate [Plavix 75mg Tab] 75 mg PO DAILY Oxycodone HCl [Oxycontin 15mg tab] 15 mg PO Q6HP PRN PRN Reason: pain Metoprolol Succinate 50 mg PO DAILY Gabapentin [Neurontin 800mg Tab] 800 mg PO TID PRN PRN Reason: pain Buspirone HCl [Buspar 10mg tablet] 10 mg PO BID Pantoprazole Sodium [Protonix 40mg tablet] 40 mg PO DAILY Aspirin [Aspir 81] 81 mg PO DAILY
[2018-06-30 14:36] LABS: Bacteria,Urine Trace /lpf; WBC,Urine Occasional #/hpf (0-3)
== END 2018-06-30 23:25 | disposition short-term general hospital (02) ==
LOC: ER 11:12 → 2ND 13:20 → ICU 15:45 → 2ND 06-30 17:33
PROVIDERS: ADMIT Emergency Medicine; ATTEND Emergency Medicine
CPT/HCPCS: 71020; 71046; 71270; 80048; 80053; 81001; 82550; 82553; 83605; 84484; 85007; 85025; 87040; 87070; 87077; 87184; 87186; 87205; 87507; 93005; 93306; 94640; 94761; 96365; 96366; 96375; 99285; J0456; Q9967